=== PATIENT | female | born 1950 | race Caucasian/White ===

== ENCOUNTER 2024-10-11 10:47 | Emergency (ER) | payer MEDICARE, SELFPAY ==
--- NOTE | ~2024-10-11 | CT_ITS ---
CLINICAL HISTORY: LLQ pain CT ABDOMEN AND PELVIS WITH CONTRAST Comparison: None provided Findings: Mild atelectasis and/or scarring. No basilar consolidation or pleural effusion. No acute abnormalities in the solid organs. No urolithiasis. No large calcified gallstone. No AAA. The right hepatic lobe measures 18 cm on coronal image 36. No bowel obstruction, pneumoperitoneum, or pneumatosis. No ascites or significant mesenteric edema. There are multiple diverticula throughout the colon with no significant paracolic edema. The appendix is identified. No acute appendicitis. Hysterectomy. There is irregular urinary bladder configuration with diffuse wall thickening and adjacent fat stranding. There are small fat containing bilateral inguinal hernias. Mild superior endplate compression deformity in T9 with prominent endplate Schmorl's node. The endplate margins are sclerotic indicative of chronicity. IMPRESSION: 1. Probable acute cystitis in the appropriate clinical setting. 2. No acute obstructive uropathy, acute pyelonephritis or urolithiasis. 3. Diverticulosis coli with no convincing evidence for acute diverticulitis. This document has been electronically signed by: Bozena Brown DO on 10/11/2024 19:58:57
[2024-10-11 11:22] VITALS: BP 140/73; PULSE 94; RESP 16; TEMP 36.3; O2SAT 95; BMI 27.2
--- NOTE | 2024-10-11 11:25 | ED_ITS ---
HPI - General Adult General Chief complaint: Abdominal Pain Stated complaint: Lower Abd Pain, Diarrhea Time Seen by Provider: 10/11/24 15:41 Source: patient and RN notes reviewed Mode of arrival: ambulatory Limitations: no limitations History of Present Illness ED Provider: Dede Leo PA-C [facility] narrative: This is a 74-year-old female who presents emergency department with concerns of abdominal pain and diarrhea associated with intermittent nausea for the last week. Patient states that her abdominal pain is in the left lower quadrant, worsening with bowel movements. She does report some diarrhea. No bloody or black stool. She denies any fevers or chills. No chest pain, shortness of breath. Also reporting an episode of vomiting several days ago. She denies any urinary symptoms. History of total hysterectomy, otherwise no other abdominal surgeries. No recent travel or antibiotic use. No other complaints or concerns at this time. MD complaint: Abdominal pain, diarrhea Onset (ago): week(s) Radiation: non-radiation Quality: aching Pain Consistency: constant Relieving factors: none Exacerbating factors: none Associated symptoms: denies other symptoms Treatments prior to arrival: none Related Data Allergies Allergy/AdvReac Type Severity Reaction Status Date / Time No Known Allergies Allergy Verified 10/11/24 11:25 Review of Systems 2 Review of Systems: Yes all other systems are reviewed and are negative Constitutional: Constitutional: Reports as per [facility] Past Medical History Attestation statement: The following information was validated with the patient. Social History Social History Advance Directives: No Advance Directives Information Provided: Yes Do you have a plan to hurt others: No Plan Physical Exam ED Vital Signs: Vital Signs - 24 hr 10/11/24 11:22 10/11/24 16:04 Temperature 97.3 F 98.0 F Pulse Rate 94 72 Respiratory Rate 16 16 Blood Pressure 140/73 H 144/80 H Pulse Oximetry 95 98 Oxygen Delivery Method Room Air Room Air BMI result Body Mass Index 27.2 Const General: cooperative, comfortable and no acute distress Orientation/consciousness: patient oriented x3 Limitations: no limitations HENMT Head: Yes normal to inspection, Yes normocephalic and Yes atraumatic Ears: hearing grossly normal bilaterally General nose exam: Normal external nose present Face and sinus: Yes normal facial exam Mouth: Normal oral and palatal mucosa present, oropharynx normal and moist mucous membranes Throat: Yes posterior oropharynx normal Eyes General: appearance normal, both eyes and all related structures Eyelids: Yes eyelids normal Conjunctivae: conjunctivae normal Sclerae: sclerae normal Pupils: Equal, round and reactive pupils present EOM: EOMs intact bilaterally Neck Neck: Yes normal visual inspection, Yes full ROM and Yes no lymphadenopathy Lymphatic: no lymphadenopathy noted Chest Chest palpation & inspection: normal inspection of the chest Resp Effort & Inspection: normal respiratory effort and able to speak in complete sentences Auscultation: clear to auscultation bilaterally, no crackles, no rales, no rhonchi and no wheezes Cardio Rate: regular rate Rhythm: regular rhythm Heart sounds: S1 normal heart sound present and S2 normal heart sound present GI Other: Abdomen is soft with tenderness palpation in the left lower quadrant, no rebound or guarding. Inspection: Yes normal to inspection Skin General skin exam: no rashes or lesions noted Trauma: no lacerations or abrasions Wounds: no wounds Neuro General: patient oriented x3 and moves all extremities Cranial nerves: Yes Equal, round and reactive pupils present Extrem General: Yes normal to inspection Right upper extremity: normal to inspection Left upper extremity: normal to inspection Right lower extremity: normal to inspection Left lower extremity: normal to inspection Course Course Course Narrative: RME, this is a rapid medical exam performed by John Nava please refer to primary provider for complete H&P- 74-year-old female presents for evaluation of lower abdominal pain, nausea, diarrhea. His symptoms started about 1 week ago. Plan for labs, urinalysis Reevaluation(s) Reevaluation #1: I Breann Farias PA-C have accepted care of the patient and signed out pending urinalysis and CT scan of the abdomen and pelvis: Labs: Urine not infected CT abdomen and pelvis:IMPRESSION: 1. Probable acute cystitis in the appropriate clinical setting. 2. No acute obstructive uropathy, acute pyelonephritis or urolithiasis. 3. Diverticulosis coli with no convincing evidence for acute diverticulitis. Medications Administered Discontinued Medications Generic Name Dose Route Start Last Admin Trade Name Freq PRN Reason Stop Dose Admin Sodium Chloride 1,000 mls @ 999 mls/hr 10/11/24 15:50 10/11/24 18:35 Ns IVCONT 10/11/24 16:50 Infused .Q1H1M ONE Infusion Iohexol 100 ml 10/11/24 17:02 10/11/24 17:02 Iohexol 350 Mg/Ml 100 Ml Infus..Btl IV 10/11/24 17:03 85 ml ONCE ONE Administration Medical Decision Making Medical Decision Making [facility] Narrative: This is a 74-year-old female who presents emergency department with concerns of abdominal pain and diarrhea for the last week. On arrival, patient mildly hypertensive at 140/73, all other vital signs within normal limits. She is speaking full sentences under no acute distress. Labs were obtained prior to my evaluation, she has no leukocytosis, stable H&H, chemistry revealing no evidence of DUYEN, ALT slightly elevated at 33, otherwise chemistry nondiagnostic. Lipase within normal limits. Given patient has tenderness palpation in the left lower quadrant, will obtain CT to rule out any acute process. Differential diagnoses include diverticulitis, diverticulosis, gastroenteritis. Plan: Labs, CT, UA Differential Diagnosis Differential Diagnoses: The differential diagnosis associated with the presentation includes Gastritis, gastroenteritis, colitis Admission/Observation Consideration of admission/observation: Escalation of care including admission/observation considered Lab Data [facility] Lab Attestation statement: I reviewed the patient's lab results. See course comment 10/11/24 13:26 10/11/24 13:26 Labs: Lab Results 10/11/24 10/11/24 Range/Units 13:26 20:20 WBC 8.6 (4.8-10.8) X10*3/uL RBC 4.10 L (4.20-5.50) X10*6/uL Hgb 13.3 (12.0-16.0) g/dl Hct 38.3 (37.0-47.0) % MCV 93.4 (80.0-98.0) fL MCH 32.4 (27.0-33.0) pg MCHC 34.7 (31.0-35.0) g/dl RDW 12.6 (11.0-16.0) % Plt Count 297 (160-400) X10*3/uL MPV 10.0 (9.4-12.3) fL Immature Gran % (Auto) 0.4 (0.0-0.4) % Neut % (Auto) 60.6 (45-73) % Lymph % (Auto) 27.5 (20-40) % Schley % (Auto) 7.9 (2-11) % Eos % (Auto) 2.8 (0-4) % Baso % (Auto) 0.8 (0-2) % Lymph # (Auto) 2.4 (1.2-4.9) X10*3/uL Schley # (Auto) 0.7 (0.1-1.2) X10*3/uL Eos # (Auto) 0.2 (0.0-0.4) X10*3/uL Baso # (Auto) 0.1 (0.0-0.2) X10*3/uL Abs Immat Gran (auto) 0.03 (0.00-0.03) X10*3/uL Absolute Neuts (auto) 5.2 (2.0-8.3) x10*3/uL Absolute Nucleated RBC 0.000 (0.0-0.012) X10*3/uL Nucleated RBC % (auto) 0.0 (0.0-0.2) /100WBC Sodium 137 (135-145) mmol/L Potassium 3.9 (3.3-5.1) mmol/L Chloride 95 L (96-108) mmol/L Carbon Dioxide 33 H (22-29) mmol/L Anion Gap 13 (12-20) BUN 22 H (9-16) mg/dL Creatinine 0.99 (0.5-1.4) mg/dL Estim Creat Clear Calc 44.9 Estimated GFR 55 Random Glucose 104 (60-115) mg/dL Calcium 9.4 (8.4-10.2) mg/dL Total Bilirubin 0.3 (0.0-1.0) mg/dL AST 30 (5-31) U/L ALT 33 H (0-31) U/L Alkaline Phosphatase 48 (39-117) U/L Total Protein 7.2 (6.5-8.0) g/dL Albumin 4.3 (3.5-5.0) g/dL Lipase 27 (8-78) U/L Urine Color Yellow Urine Appearance Clear Urine pH 8.0 (5.0-9.0) Ur Specific [place] >= 1.030 H (1.005-1.025) Urine Protein Negative (Neg-Trace) mg/dL Urine Glucose (UA) Negative (Negative) mg/dL Urine Ketones Negative (Negative) mg/dL Urine Blood Negative (Negative) Urine Nitrite Negative (Negative) Ur Leukocyte Esterase Negative (Negative) Urine RBC 0-2 (0-2) /HPF Urine WBC 0-5 (0-5) /HPF Ur Squamous Epith Cells 0-2 (0-2) /HPF Urine Bacteria None Seen (None Seen) Hyaline Casts 0-2 (0-2) /LPF Radiology Impression Discussion of test interpretation with radiology: I have reviewed the radiologist's reading. Discharge Plan Discharge Clinical Impression: Diarrhea Patient Disposition: Home, Self-Care Instructions: Acute Diarrhea (ED) Additional Instructions: All of your screening labs were completely normal, your urine is not infected. The CT scan revealed no acute infection. It can be normal to have significant cramping when you have diarrhea. See home care instructions. Follow up with your primary care provider as needed. Print Language: Lithuanian
[2024-10-11 13:44] LABS: MANUAL DIFF FLAG NO
[2024-10-11 13:48] LABS: Basophils Absolute Auto 0.1 X10*3/uL (0.0-0.2); Basophils Percent Auto 0.8 % (0-2); Eosinophils Absolute Auto 0.2 X10*3/uL (0.0-0.4); Eosinophils Percent Auto 2.8 % (0-4); Hematocrit 38.3 % (37.0-47.0); Hemoglobin 13.3 g/dl (12.0-16.0); Imm Gran Abs Auto 0.03 X10*3/uL (0.00-0.03); Imm Gran Pct Auto 0.4 % (0.0-0.4); Lymphocytes Absolute Auto 2.4 X10*3/uL (1.2-4.9); Lymphocytes Percent Auto 27.5 % (20-40); Mean Corpuscular HGB Conc 34.7 g/dl (31.0-35.0); Mean Corpuscular Hemoglobin 32.4 pg (27.0-33.0); Mean Corpuscular Volume 93.4 fL (80.0-98.0); Monocytes Absolute Auto 0.7 X10*3/uL (0.1-1.2); Monocytes Percent Auto 7.9 % (2-11); Neutrophils Absolute Auto 5.2 x10*3/uL (2.0-8.3); Neutrophils Percent Auto 60.6 % (45-73); Platelet Count 297 X10*3/uL (160-400); Red Cell Distribution Width 12.6 % (11.0-16.0); White Blood Count 8.6 X10*3/uL (4.8-10.8)
[2024-10-11 14:05] LABS: Alanine Aminotransferase 33 U/L (0-31); Albumin Level 4.3 g/dL (3.5-5.0); Alkaline Phosphatase 48 U/L (39-117); Anion Gap 13 (12-20); Aspartate Amino Transferase 30 U/L (5-31); Bilirubin Total 0.3 mg/dL (0.0-1.0); Blood Urea Nitrogen 22 mg/dL (9-16); Calcium 9.4 mg/dL (8.4-10.2); Carbon Dioxide 33 mmol/L (22-29); Chloride 95 mmol/L (96-108); Creatinine Clr Calc Pharmacy 44.9; Estimated Glomerular Filt Rate 55; Glucose Random 104 mg/dL (60-115); Lipase 27 U/L (8-78); Potassium 3.9 mmol/L (3.3-5.1); Sodium 137 mmol/L (135-145); Total Protein 7.2 g/dL (6.5-8.0)
[2024-10-11 16:04] VITALS: BP 144/80; PULSE 72; RESP 16; TEMP 36.7; O2SAT 98
[2024-10-11] MEDS: 0.9 % Sodium Chloride 1,000 ML 999 ML IVCONT (16:15)
--- NOTE | 2024-10-11 16:18 | PC.NURSE ---
This RN had pt change advisor into gown, IV placed, IVF started, pt awaiting CT scan at this time. Pt reporting pain is mostly LLQ, nausea noted. Pt able to ambulate with ease to BR at this time.
[2024-10-11] MEDS: iohexoL 350 MG/ML 100 ML INFUS..BTL IV (17:02)
--- OUTSIDE RECORDS SUMMARY | 2024-10-11 17:58 | XMS_ITS | Encounter Summary ---
Author Organization [employer] Address [address] [place] [address] Care Team Providers Care Quantitative Software Engineer Name Role Phone Veronica Vail MD Primary Care Provider [phone] Reason for Visit * Reason Comments Med Refill Encounter Details Date Type Department Care Team ([facility] Contact Info) Description 10/07/2024 Refill [facility][1] MEDICAL [address] [place] [address] Vicky Monte, DO [address] [place] [address] Depression with anxiety Social History Tobacco Use Types Packs/Day Years Used Date Smoking Tobacco: Never Passive Smoke Exposure: Never Smokeless Tobacco: Never Alcohol Use Standard Drinks/Week Comments Yes 0 (1 standard drink = 0.6 oz pur e alcohol) Alcohol Answer Date Recorded How often do you have a drink containing alcohol ? 0 07/20/2023 How many drinks containing a lcohol do you have on a typical day when you are drinking? 0 07/20/2023 How often do you have six or more drinks on one occasion? 0 07/20/2023 Housing Stability Answer Date Recorded What is your housing situation today? I have davie bird 07/20/[address] you li ve. Do you have problems with any of the following? None of the above 07/20/2023 Food Insecurity Answer Date Recorded Within the past 12 months, y ou worried that your food would run out before you got money to buy more: Never True 07/20/2023 Within the past 12 months,th e food you bought just didn't last and you didn't have enough money to get more: Never True Transportation Answer Date Recorded In the past 12 months, has l ack of transportation kept you from medical appts, meetings, work or from getting things needed for daily living? No 07/20/2023 Intimate Partner Violence Answer Date R ecorded Within the last year, have y ou been afraid of your partner or ex-partner? 2 07/20/2023 Within the last year, have y ou been humiliated or emotionally abused in other ways by your partner or ex-partner? 2 Within the last year, have y ou been kicked, hit, slapped, or otherwise physically hurt by your partner or ex-partner? 2 07/20/2023 Within the last year, have y ou been raped or forced to have any kind of sexual activity by your partner or ex-partner? 2 07/20/2023 Utilities Answer Date Recorded In the past 12 months, has t he electric, gas, oil or water company threatened to shut off services in your home? No 07/20/2023 Depression Answer Date Recorded Patient Health Questionnaire-2 Score 0 07/20/2023 Internet Access Answer Date Recorded Internet Access Q1 Yes 02/24/2024 Internet Access Q2 I do not want or need it 01/26 Education Answer Date Recorded What is the highest level of school you have completed or the highest degree you have received? High school graduate 07/20/2023 Comments No Sex and Gender Information Value Date Recorded Sex Assigned at Female 10/30/2022 9:49 AM EDT Legal Sex Female 8:33 PM EDT Gender Identity Female 10/30/2022 9:49 AM EDT Sexual Orientation Straight 10/30/2022 9: 49 AM EDT Occupation Industry Job Start Date Job End Date Retired Not on file Not on file Not on file documented as of this encounter Plan of Treatment Upcoming Encounters Date Type Department Care Team (Late st Contact Info) Description 10/23/2024 10:00 AM EDT Office Visit [facility] [address] [place] [address] Danay Ramsey CNP [address] [place] [place] [address] documented as of this encounter Visit Diagnoses Diagnosis Depression with anxiety Dysthymic disorder documented in this encounter Care Teams Quantitative Software Engineer Relationship Specialty Start Date End Date Veronica Vail MD [address] [place] [address], [place] [address] PCP - General Internal Medicine 04/10/22 documented as of this encounter
--- NOTE | 2024-10-11 18:35 | PC.NURSE ---
Pt awaiting CT results at this time, pt denies having any pain or nausea at this time, resting comfortably
[2024-10-11 20:30] LABS: Appearance Urine Clear; Color Urine Yellow; Glucose Urine UA Negative (Negative); Leukocyte Esterase Urine Negative (Negative); Nitrite Urine Negative (Negative); Specific Gravity - Urine >= 1.030 (1.005-1.025); Urine Blood Negative (Negative); Urine Ketones Negative (Negative); Urine Protein Negative (Neg-Trace)
[2024-10-11 20:32] LABS: Bacteria Urine None Seen (None Seen); Hyaline Casts Urine 0-2 /LPF (0-2); RBC Urine 0-2 /HPF (0-2); Squamous Epithelial Cell Urine 0-2 /HPF (0-2); WBC Urine 0-5 /HPF (0-5)
[2024-10-11 20:49] VITALS: BP 180/100; PULSE 69; RESP 14; TEMP 37.2; O2SAT 97
[2024-10-11 20:50] VITALS: BP 180/100; PULSE 69; RESP 14; TEMP 37.2; O2SAT 97
== END 2024-10-11 20:51 | disposition home or self-care (01) ==
PROVIDERS: Physician Assistant; Emergency Provider Emergency Medicine
DX: R19.7 Diarrhea, unspecified (principal)
CPT/HCPCS: 36415; 74177; 80053; 81001; 83690; 85025; 96360; 96361; 99284; 99285; Q9967

== ENCOUNTER → 2024-10-11 15:50 | Outpatient (BNV) | payer MEDICARE, SELFPAY | PROVIDERS: Emergency Provider Emergency Medicine; Visit Provider Radiology Diagnostic Radiology | DX: K57.30 Diverticulosis of large intestine without perforation or abscess without bleeding (principal) | CPT/HCPCS: 74177 ==